=== PATIENT | male | born 1965 | race Caucasian/White ===

== ENCOUNTER → 2017-11-23 | Outpatient (CLI) | payer OTHER | LOC: FIMAGING 15:18 | PROVIDERS: ATTEND Orthopaedic Surgery | DX: Z01.818 Encounter for other preprocedural examination (principal); M24.852 Other specific joint derangements of left hip, not elsewhere classified ==

== ENCOUNTER → 2018-01-22 | Outpatient (CLI) | payer OTHER | LOC: BMCIMAGING 10:15 | PROVIDERS: ATTEND Physician Assistant | DX: Z47.1 Aftercare following joint replacement surgery (principal); Z96.642 Presence of left artificial hip joint ==

== ENCOUNTER → 2018-04-03 | Outpatient (CLI) | payer OTHER | LOC: CIMAGING 11:30 | PROVIDERS: ATTEND Orthopaedic Surgery | DX: Z01.818 Encounter for other preprocedural examination (principal); M16.11 Unilateral primary osteoarthritis, right hip | CPT/HCPCS: 73700-PO ==

== ENCOUNTER 2018-04-16 05:59 | Inpatient (IN) | payer OTHER ==
[2018-04-16] MEDS ORDERED: TRANEXAMIC ACID 1,000 MG in NS 100 ML IV ONE (06:00)
[2018-04-16] MEDS ORDERED: ROPIVACAINE 0.2% 80 MG, EPINEPHrine 0.2 MG, KETOROLAC TROMETHAMINE 30 MG, morphINE 10 M... IU ONE (06:00)
[2018-04-16] MEDS ORDERED: ceFAZolin 2 GM/DEXTROSE 100 ML IV ONE (06:28)
[2018-04-16] MEDS ORDERED: ACETAMINOPHEN 325 MG TAB PO ONE (06:28)
[2018-04-16] MEDS ORDERED: FAMOTIDINE 20 MG TAB PO ONE (06:28)
[2018-04-16] MEDS ORDERED: LIDOCAINE 1% 2 ML INJ ID PRN (06:29)
[2018-04-16] MEDS ORDERED: LR 1,000 ML IV ONE (06:29)
--- NOTE | 2018-04-16 06:29 | PDIAF ---
- Diagnosis Diagnosis: right hip djd Code Status: Full Code - Medication Management Discharge Medications: electronically signed and located in the Home Medication List. - Orders Services needed: Home Care, Physical Therapy Home Care Face to Face: I certify that this patient was under my care and that I had the required [id number] encounter meeting the encounter requirements on the discharge day. My findings support the fact that the patient is homebound as defined in Home Care Face to Face Continued: CMS Chapter 7 Medicare Benefits Manual 30.1.1 , The condition of the patient is such that there exists a normal inability to leave home and consequently, leaving home would require a considerable and taxing effort. Diet Recommendation: no restrictions on diet Diet Texture: Regular Texture Diet Additional Instructions: TOTAL JOINT ARTHROPLASTY DISCHARGE INSTRUCTIONS 1. Your surgeon follows the [facility] protocol for reducing your risk of DVT (blood clots) following surgery. Medication will be ordered to prevent blood clots. A sudden increase in calf pain and/or swelling could indicate a blood clot in your leg. If this occurs, please call your surgeon or his/her case assistant. An ultrasound of the leg may be necessary to diagnose a blood clot. If you have conditions that make you a higher risk for blood clots, your surgeon may use more aggressive ways to prevent them. Notify your surgeon if you think you are a high risk for blood clots. 2. Wear your white surgical stockings (KESHAWN hose) for 2 weeks. This decreases your swelling and may help prevent blood clots. It is ok to remove KESHAWN hose at night time to give your legs a break. 3. Swelling and bruising in the surgical leg is common. If you feel that it is excessive, please notify your surgeon. 4. Elevate your surgical leg with the ankle above the hip several times every day. Please keep the leg straight when you elevate by putting pillows under your foot. Do not put pillows under your knee. This will make being able to fully straighten more difficult. This is uncomfortable, but try to do it as much as possible. 5. For total knee replacements use compressive wrap on your knee for 3-5 days after surgery, then you can discontinue it. 6. Use a walker or crutches for 1-2 weeks. Progress your weight-bearing as tolerated. You may start to use a cane when you feel stable and safe. 7. You will receive physical therapy instructions in the hospital. Continue those exercises at home. There are additional exercises in the total joint booklet you were given before surgery. Outpatient physical therapy will begin 7- 10 days after surgery. Please schedule this in advance. 8. Use ice on your knee at least 3-5 times every day for 30 minutes. This helps reduce pain and swelling. Also use it at night before falling asleep. 9. Leave your surgical dressing in place for 2 weeks. Your dressing is water resistant, but not waterproof. Cover it with Saran Wrap or Heldp-o-Koaw before showering. You may shower as soon as you feel safe entering a shower. If you notice bleeding from your incision 2 or 3 days after surgery, please notify your surgeon. 10. Due to narcotics, decreased activity and altered diet, most patients experience constipation after surgery. Use dvng-evq-[id number] stool softeners while you are on narcotics. 11. You may drive a car when you are comfortable bearing weight, have good muscular control of your leg and are off narcotics. This usually occurs 2-4 weeks after surgery, depending on which leg was operated on. 12. If there are questions not addressed here, please refer the [facility] book given for more information. If you still have questions, please contact your surgeon s office. 13. If you have a life-threatening emergency, please call 911 and go to the emergency room immediately. For non-life threatening emergencies, please call your physicians office for advice before going to the emergency room. - Follow Up Care Current Providers and Referrals: Rip Robbins MD [Primary Care Provider] - Jonathan Hancock MD [Medical Doctor] -
--- NOTE | 2018-04-16 06:29 | PDHPUP ---
History & Physical Update H&P update statement: This history and physical update is based on an assessment of the patient which was completed after admission or registration (within 24 hours), but prior to the surgery/procedure. H&P update: no change in patient's condition since H&P completed
[2018-04-16] MEDS ORDERED: ceFAZolin 1 GM/5 ML SYR ONE (06:37)
[2018-04-16] MEDS ORDERED: MIDAZOLAM 2 MG/2 ML VIAL IVP ONE (08:07)
--- NOTE | 2018-04-16 08:07 | PDANEPAE ---
ANE History of Present Illness R THR, anterior ANE Past Medical History - Cardiovascular History Hx Hypertension: No Hx Arrhythmias: No Hx Chest Pain: No Hx Coronary Artery / Peripheral Vascular Disease: No Hx CHF / Valvular Disease: No Hx Palpitations: No - Pulmonary History Hx COPD: No Hx Asthma/Reactive Airway Disease: No Hx Recent Upper Respiratory Infection: No Hx Oxygen in Use at Home: No Hx Sleep Apnea: No Sleep Apnea Screening Result - Last Documented: Negative - Neurologic History Hx Cerebrovascular Accident: No Hx Seizures: No Hx Dementia: No Neurologic History Comment: hx of crani 2005 - Endocrine History Hx Diabetes: No - Renal History Hx Renal Disorders: No - Liver History Hx Hepatic Disorders: No - Neurological & Psychiatric Hx Hx Neurological and Psychiatric Disorders: No - Cancer History Hx Cancer: No - Congenital Disorder History Hx Congenital Disorders: No - GI History Hx Gastrointestinal Disorders: No - Other Health History Other Health History: wears glasses - Chronic Pain History Chronic Pain: No - Surgical History Prior Surgeries: crani 01/2006 from getting hit in head with softball- 9 metal plates. L carly 2018 ANE Review of Systems Review of systems is: negative Review of Systems: - Exercise capacity METS (RN): 4 METS ANE Patient History - Allergies Allergies/Adverse Reactions: No Known Allergies Allergy (Verified 11/23/17 14:04) - Home Medications Home medications: home medication list seen and reviewed Home Medications: NK [No Known Home Meds] 03/28/18 [Last Taken Unknown] - NPO status NPO Status: no food or drink >8 hours NPO Since - Liquids (Date): 04/16/18 NPO Since - Liquids (Time): 23:30 NPO Since - Solids (Date): 04/15/18 NPO Since - Solids (Time): 05:30 - Anes Hx Anes Hx: no prior problems - Smoking Hx Smoking Status: Never smoked - Family Anes Hx Family Anes Hx: none Family Hx Anesthesia Complications: none ANE Labs/Vital Signs - Vital Signs Vital Signs: reviewed preoperatively; see RN documention for details Blood Pressure: 148/99 Heart Rate: 60 Respiratory Rate: 16 O2 Sat (%): 94 Height: 175.26 cm Weight: 93.44 kg ANE Physical Exam - Airway Neck exam: FROM Mallampati Score: Class 2 Mouth exam: normal dental/mouth exam - Pulmonary Pulmonary: no respiratory distress - Cardiovascular Cardiovascular: regular rate and rhythym - ASA Status ASA Status: I ANE Anesthesia Plan Anesthesia Plan: MAC, spinal
[2018-04-16] MEDS ORDERED: PROPOFOL/EMULSION 500 MG/50 ML BOTTLE IV ONE ×3 (08:24→10:06)
[2018-04-16] MEDS ORDERED: BUPIVACAINE/DEXTROSE 7.5MG/ML 2 ML SPINAL AMP SP ONE (08:24)
[2018-04-16] MEDS ORDERED: LIDOCAINE 2% 100 MG/5 ML SYR ONE (08:24)
[2018-04-16] MEDS ORDERED: fentaNYL 100 MCG/2 ML INJ IVP PRN (09:02)
[2018-04-16] MEDS ORDERED: oxyCODONE IR 5 MG TAB PO PRN ×2 (09:02→11:02)
[2018-04-16] MEDS ORDERED: DEXAMETHASONE 4 MG/ML VIAL IVP PRN (09:02)
[2018-04-16] MEDS ORDERED: HYDROCODONE/APAP 5/325 TAB PO PRN (09:02)
[2018-04-16] MEDS ORDERED: ONDANSETRON 4 MG/2 ML VIAL IVP PRN ×2 (09:02→11:02)
[2018-04-16] MEDS ORDERED: HYDROmorphONE/DILAUDID 2 MG/ML INJ IVP PRN (09:02)
[2018-04-16] MEDS ORDERED: MEPERIDINE 25 MG/0.5 ML AMP IVP PRN (09:02)
[2018-04-16] MEDS ORDERED: ACETAMINOPHEN 500 MG TAB PO PRN (09:02)
[2018-04-16] MEDS ORDERED: NALOXONE HCL 0.4 MG/ML INJ IVP PRN (09:02)
--- NOTE | 2018-04-16 09:02 | POSTANESTH ---
Post Anesthetic Evaluation Cardiovascular Status: Normal, Stable, Similar to Pre-Op Cond Respiratory Status: Normal, Stable, Similar to Pre-op Cond. Level of Consciousness/Mental Status: Can Participate in Eval, Mildly Sleepy, Arousable Pain Control: Adequate, Prn Tx Ordered Nausea/Vomiting Control: Adequate, Prn Tx Ordered Complications Possibly Related to Anesthesia: None Noted
[2018-04-16] MEDS ORDERED: CYCLOBENZAPRINE 10 MG TAB PO PRN (11:02)
[2018-04-16] MEDS ORDERED: MAGNESIUM HYDROXIDE 30 ML UDCUP PO PRN (11:02)
[2018-04-16] MEDS ORDERED: diphenhydrAMINE 25 MG CAP PO PRN (11:02)
[2018-04-16] MEDS ORDERED: PROMETHAZINE HCL 25 MG SUPPR PR PRN (11:02)
[2018-04-16] MEDS ORDERED: DIPHENOXYLATE/ATROPINE LOMOTIL 1 TAB PO PRN (11:02)
[2018-04-16] MEDS ORDERED: POLYETHYLENE GLYCOL 3350 17 GM PKT PO PRN (11:02)
[2018-04-16] MEDS ORDERED: ONDANSETRON DISINTEGRATING 4 MG TAB PO PRN (11:02)
[2018-04-16] MEDS ORDERED: METOCLOPRAMIDE 10 MG/2 ML VIAL IVP PRN (11:02)
[2018-04-16] MEDS ORDERED: PROMETHAZINE HCL 25 MG/ML INJ IVP PRN (11:02)
[2018-04-16] MEDS ORDERED: TEMAZEPAM 15 MG CAP PO PRN (11:02)
[2018-04-16] MEDS ORDERED: LACTULOSE 20 GM/30 ML UDCUP PO PRN (11:02)
[2018-04-16] MEDS ORDERED: BISACODYL 10 MG SUPP PR PRN (11:02)
--- NOTE | 2018-04-16 11:04 | POSTOPPROG ---
Post Op Note Date of Operation: 04/16/18 Surgeon: Jonathan Hancock Brick Grader: rene Anesthesia: Spinal Pre-op Diagnosis: rigfht hip djd Post-op Diagnosis: same Indication: same Procedure: right carly Inf/Abcess present in the surg proc area at time of surgery?: No Depth: Deep Incisional (Fascial) EBL: 100-500 Drains: Hemovac
[2018-04-16] MEDS ORDERED: oxyCODONE IR 5 MG TAB ONE (11:22)
[2018-04-16] MEDS ORDERED: LR 1,000 ML IV SCH (11:30)
[2018-04-16] MEDS ORDERED: ACETAMINOPHEN 325 MG TAB PO SCH (12:00)
[2018-04-16] MEDS ORDERED: ceFAZolin 2 GM/DEXTROSE 100 ML IV SCH (14:00)
[2018-04-16] MEDS ORDERED: TRANEXAMIC ACID 650 MG TAB PO SCH (14:00)
--- NOTE | 2018-04-16 15:00 | PDMN ---
Medical Necessity Medical necessity: [facility] [place] S560 hip arthroplasty INPT only OP: R OLIVIER AUTH # [id number] FOR CPT 03838 DONE INPATIENT. DOS 04/16/18 TO 04/18/18.
[2018-04-16 15:35] VITALS: BP 114/79
--- NOTE | 2018-04-16 15:40 | ASDISCHSUM ---
Discharge Information Plan Status:Home with No Needs Medically Cleared to Leave:04/15/2018 Discharge Date:04/15/2018 CM D/C Disposition:Home, Routine, Self-Care ADT D/C Disposition:Home Health Service Projected Discharge Date:04/16/2018 12:00 AM Transportation at D/C:Family Discharge Delay Reason: Follow-Up Date:04/16/2018 12:00 AM Discharge Slot:2 - 12:01 pm - 18:00 pm Final Diagnosis: Placement Information Patient Contact Information Contact Name:KERI Relationship:Mother Address:[facility] [address] Work Phone: Chyna:MARLA Salvador Phone: [facility]/Zip Code:[place] [address] Email: Financial Information Financial Class:[facility] Primary Plan Desc:[facility] Primary Plan Number:[id number] Secondary Plan Desc: Secondary Plan Number: Assessment Information Case Management Discharge Plan Note Case Management Discharge Discharge Order Complete? Answers: Yes Patient to Obtain Answers: via Family Medications Transportation Arranged Answers: Family/Friends Discharge Comments Notes: CM met with pt. No CM needs identified, discharge independent. Family to transport. Date Signed: 04/16/2018 03:39 PM Electronically Signed By:CLAYTON Camacho Intervention Information
[2018-04-16] MEDS ORDERED: ASPIRIN 325 MG TAB PO SCH (21:00)
[2018-04-16] MEDS ORDERED: SENNOSIDES/DOCUSATE SODIUM TAB PO SCH (21:00)
[2018-04-16] MEDS ORDERED: FAMOTIDINE 20 MG TAB PO SCH (21:00)
--- NOTE | 2018-04-20 08:26 | GOP ---
DATE OF OPERATION: 04/16/2018 SURGEON: Jonathan Hancock MD MEAT GRINDER: Melanie Dimas RN who was a surgical nurse practitioner and requirement for the entirety of the de se. PREOPERATIVE DIAGNOSIS: Right hip degenerative joint disease. POSTOPERATIVE DIAGNOSIS: Right hip degenerative joint disease. PROCEDURE PERFORMED: Right total hip arthroplasty, MAKOplasty. FINDINGS: SPECIMENS: To Pathology, the femoral head. ESTIMATED BLOOD LOSS: 200 cc. INDICATIONS: The patient is a 52-year-old gentleman with end-stage arthritis to the right hip. He h as undergone previous left hip replacement by myself who returns today for elective right total hip r eplacement. He has failed all attempts at conservative management. I have, therefore, recommended o perative intervention. He understands the risks, benefits, alternatives, and wished to proceed. Wri tten consent was signed and placed in the patient's chart. DESCRIPTION OF PROCEDURE: The patient was identified in the preanesthesia area. The right hip clear ly demarcated as the operative site with an indelible marker. He was given 2 g of Ancef intravenousl y in route to the operative suite. In the OR, spinal anesthetic was placed. He was positioned in th e supine position. Attention was turned to the pelvis and both lower extremities, which were sterile ly prepped and draped in usual fashion. Appropriate time-out procedure was carried out. Attention was first turned to the left hemipelvis a 2 cm incision was made over the iliac crest and 3 pins were then placed. The pelvic reference array was affixed. Attention was turned to the right h ip an anterior approach was made to the hip. This carried sharply through the skin and subcutaneous tissue to the fascia overlying the tensor fascia luisa. This fascia was opened. The tensor muscle re tracted laterally. The underlying vascular structures were identified, ligated, cauterized, transect ed. The rectus was elevated off the capsule anteriorly. Retractors were placed in an extracapsular position. A T capsulotomy was then made. Retractors were placed into an intracapsular position. An acetabular checkpoint was placed. A bony wedge was withdrawn from the femoral neck, as was the head . The labrum and remaining soft tissues around the acetabulum were sharply excised. The bony landma rks were entered into the computer in standard fashion. Using the MAKOplasty robot, a reaming single stage with a 54 mm reamer was carried out to the appropriate depth with an opening angle of 40 degre es and anteversion of 20 degrees. A 54 mm shell was then impacted, confirmed to be fully seated, and a 0 degree X3 liner was placed. Attention was then turned to the femur, which was delivered through the use of extension of the table , soft tissue releases, and retractor placement. The proximal canal was opened. Serial broaching ca rried out to a size 6 stem. Intraoperative fluoroscopy was used to confirm leg lengths, appropriate positioning, and a 36 mm +0 mm Biolox head was ultimately selected. This restored leg lengths. Stab ility profile demonstrated full extension and external rotation of 90 degrees without subluxation, fl exion of 90 degrees with internal, external rotation of 45 degrees. The trial stem was withdrawn. A final size 6 stem was impacted, confirmed to be fully seated, and a Biolox 36 mm +0 mm neck length h ead was impacted across the cleansed trunnion. The hip was irrigated and reduced. A 10-Japanese Hemov ac drain was placed. Soft tissues were injected with a joint cocktail of ropivacaine, morphine, Ksenia dol, and epinephrine. Gross hemostasis was ensured. The tensor fascia was closed using 0 Vicryl, gamboa bcutaneous tissue using 2-0 Monocryl, and the skin was stapled. Sterile dressing was applied. The p atient was awakened, extubated, and taken to recovery room in good and stable condition. TOTAL TOURNIQUET TIME: None. COMPLICATIONS: None. IMPLANTS: Bridger titanium shell size 54 mm, X3 0-degree polyethylene insert 36 mm, Biolox head, 36 mm, 0 neck length, and Accolade II stem size 0, 127 degree neck angle. DISPOSITION: To the recovery room. He is weightbearing range of motion as tolerated with anterior h ip precautions. /[id number]/MODL
--- NOTE | 2018-04-20 10:43 | GDS ---
ADMIT DIAGNOSIS: Right hip degenerative joint disease. DISCHARGE DIAGNOSIS: Right hip degenerative joint disease. PROCEDURE: Right total hip arthroplasty. HISTORY OF PRESENT ILLNESS: The patient is a 52-year-old gentleman who is known to me for previous l eft total hip replacement. He presents today for elective right total hip replacement. He understan ds the risks, benefits, alternatives, and wishes to proceed. Written consent was signed and placed i n the patient's chart. HOSPITAL COURSE: The patient was admitted to the hospital floor after uncomplicated total hip arthro plasty. Quickly progressed with physical therapy. At time of discharge, he is tolerating an oral di et. Pain was well controlled on oral medicines. He is voiding without difficulty. Dressing is mandy n, dry, and intact. He has negative Iveth's bilaterally. X-rays are stable, with anatomic alignment . DISCHARGE ACTIVITY: Weightbearing, range of motion as tolerated. Anterior hip precautions will be o bserved. He uses the KESHAWN hose for 2 weeks. DISCHARGE MEDICATIONS: Oxycodone 5 mg 1-2 every 6 hours p.r.n. pain, aspirin 325 mg p.o. daily. FOLLOWUP: Follow up at 2 weeks. Seek attention for increasing redness, swelling, drainage, discharg e, or other focal complaints. /[id number]/MODL
== END 2018-04-16 17:57 | disposition home or self-care (01) | DRG 470 ==
LOC: F3E 05:59 → F3N 11:54
PROVIDERS: ADMIT Orthopaedic Surgery; ATTEND Orthopaedic Surgery
DX: M16.11 Unilateral primary osteoarthritis, right hip (principal)
CPT/HCPCS: 97161-GP; 97165-GO; J0171; J0690; J1885; J2001; J2250; J2270; J2704; J2795

== ENCOUNTER → 2018-05-30 | Outpatient (CLI) | payer OTHER | LOC: BMCIMAGING 09:18 | PROVIDERS: ATTEND Physician Assistant | DX: Z47.1 Aftercare following joint replacement surgery (principal); Z96.641 Presence of right artificial hip joint ==

== ENCOUNTER → 2018-08-01 | Outpatient (CLI) | payer OTHER | LOC: BMCIMAGING 08:41 | PROVIDERS: ATTEND Orthopaedic Surgery | DX: Z47.1 Aftercare following joint replacement surgery (principal); Z96.641 Presence of right artificial hip joint ==